=== PATIENT | male | born 1960 | race Hispanic/Latino ===

== ENCOUNTER 2016-09-30 13:05 | Emergency (ER) | payer MEDICAID ==
[2016-09-30 13:16] VITALS: TEMP 97.7
[2016-09-30 13:23] VITALS: BMI 34.2
[2016-09-30 13:44] LABS: ADD MANUAL DIFF? NO
[2016-09-30 13:55] LABS: ALB/GLOB RATIO 1.2 (1.1-1.8); ALKALINE PHOSPHATASE 79 U/L (38-133); ALT/SGPT 43 U/L (7-56); AST/SGOT 26 U/L (15-59); BILIRUBIN,TOTAL 0.7 mg/dL (0.2-1.3); BLOOD UREA NITROGEN 13 mg/dL (7-21); CARBON DIOXIDE 25 mmol/L (21-33); CHLORIDE 102 mmol/L (98-107); GFR AFRICAN-AMERICAN > 60; GLUCOSE,RANDOM 102 mg/dL (70-110); POTASSIUM 4.2 mmol/L (3.6-5.0); SODIUM 138 mmol/L (132-148); TOTAL PROTEIN 8.2 g/dL (5.8-8.3)
--- NOTE | 2016-09-30 14:00 | ED PDOC ---
Arrival/HPI - General Chief Complaint: Chest Pain Time Seen by Provider: 09/30/16 13:28 Historian: Patient, EMS - History of Present Illness Narrative History of Present Illness (Text): 09/30/16 13:45 Patient is a 56 yo male past medical hx of CABG, diabetes, smoking, medication noncompliance, presents to ED after he reported to his psychiatrist today that he has had intermittent chest discomfort as well as shortness of breath with exertion over the past week. He currently denies any pain or discomfort. States he "ran out of my medication" one month ago, states he is not sure if he is taking his aspirin or plavix or diabetic medication. He smokes 7 cigarettes a day. Time/Duration: 1 week Past Medical History - Infectious Disease Hx of Infectious Diseases: None - Tetanus Immunization Tetanus Immunization: Unknown - Past Medical History Past Medical History: No Previous - Cardiac Hx Cardiac Disorders: Yes (chest pain 01/14/13 with abn EKG) Hx Hypertension: Yes - Pulmonary Hx Respiratory Disorders: (smoker x30yrs) - Neurological Hx Neurological Disorder: Yes HX Cerebrovascular Accident: Yes - HEENT Hx HEENT Disorder: No - Renal Hx Renal Disorder: No - Endocrine/Metabolic Hx Endocrine Disorders: Yes Hx Diabetes Mellitus Type 2: Yes - Hematological/Oncological Hx Blood Disorders: No - Integumentary Hx Dermatological Disorder: No - Musculoskeletal/Rheumatological Hx Musculoskeletal Disorders: No Hx Falls: No - Gastrointestinal Hx Gastrointestinal Disorders: Yes - Genitourinary/Gynecological Hx Genitourinary Disorders: No - Psychiatric Hx Psychophysiologic Disorder: No Hx Depression: No Hx Emotional Abuse: No Hx Physical Abuse: No Hx Substance Use: No - Surgical History Hx Appendectomy: Yes Hx Open Heart Surgery: Yes - Anesthesia Hx Anesthesia: Yes Hx Anesthesia Reactions: No Hx Malignant Hyperthermia: No - Suicidal Assessment Feels Threatened In Home Enviroment: No Family/Social History Family/Social History: Unknown Family HX Smoking Status: Current Some Days Smoker Hx Alcohol Use: No Hx Substance Use: No Hx Substance Use Treatment: No Allergies/Home Meds Allergies/Adverse Reactions: Allergies cola Allergy (Uncoded 09/30/16 13:27) SWELLING Home Medications: Home Meds Medication Instructions Recorded Confirmed Aspirin [Aspirin Chewable] 81 mg PO DAILY 11/30/14 09/30/16 Atorvastatin Calcium [Lipitor] 40 mg PO DAILY 11/30/14 09/30/16 Clopidogrel [Plavix] 75 mg PO DAILY 11/30/14 09/30/16 amLODIPine [Norvasc] 5 mg PO DAILY 11/30/14 09/30/16 Metformin HCl [Glucophage] 500 mg PO BID 09/30/16 09/30/16 Metoprolol Tartrate [Lopressor] 25 mg PO BID 09/30/16 09/30/16 Review of Systems - Review of Systems Constitutional: Fatigue. absent: Fevers Eyes: absent: Vision Changes ENT: absent: Hearing Changes Respiratory: SOB. absent: Cough, Wheezing Cardiovascular: Chest Pain, SNYDER. absent: Palpitations, Edema, Calf Pain Gastrointestinal: absent: Abdominal Pain, Nausea, Vomiting Genitourinary Male: absent: Dysuria, Frequency Musculoskeletal: absent: Back Pain Skin: absent: Rash Neurological: absent: Headache, Focal Weakness Endocrine: absent: Polyuria Hemo/Lymphatic: absent: Easy Bleeding Psychiatric: absent: Depression, Suicidal Ideation Physical Exam - Physical Exam Narrative Physical Exam (Text): Head: Atraumatic. Normocephalic. Eyes: PERRL. EOMI. Visual acuity at basleine. ENT: Mucous membranes are moist and intact. Oropharynx is clear and symmetric. Neck: Supple. Full ROM. No JVD. No lymphadenopathy. Cardiovascular: Regular rate. Regular rhythm. Systolic murmur. Pulmonary/Chest: No evidence of respiratory distress. Clear to auscultation bilaterally. No wheezing, rales or rhonchi. Abdominal: Soft and non-distended. There is no tenderness. No rebound, guarding, or rigidity. No organomegaly. Good bowel sounds. Back: No CVA tenderness. Extremities: No edema. No cyanosis. No clubbing. Full range of motion in all extremities. No calf tenderness. Skin: Skin is warm and dry. No petechiae. No purpura. Smells of cigarette smoke. Neurological: Alert, awake, and oriented to person, place, time, and situation. Normal speech. Motor and sensory intact. No facial droop. No meningeal signs. Psychiatric: Good eye contact. Normal interaction, affect, and behavior. No psychosis. No suicidal or homicidal ideation. 09/30/16 17:32 Vital Signs Reviewed: Yes Vital Signs Temp Pulse Pulse Resp BP BP Pulse Ox 09/30/16 17:27 72 20 147/92 H 98 09/30/16 15:01 63 17 145/92 H 97 09/30/16 13:25 69 144/85 09/30/16 13:05 97.7 F 66 20 144/85 94 L Temperature: Afebrile Blood Pressure: Normal Pulse: Regular Respiratory Rate: Normal Appearance: Positive for: Well-Appearing, Non-Toxic Pain Distress: None Mental Status: Positive for: Alert and Oriented X 3 Medical Decision Making ED Course and Treatment: 09/30/16 17:28 Patient has significant past cardiac history. He continues to smoke. He is noncompliant with his medications. He is diabetic. He states he "has chest pain and I am short of breath all the time". With CAMILLE Mehta witness present, I discussed with patient in laymen's terms the risk of smoking, risk of not taking his medication, and limitations of a cardiology evaluation from May 2016 given his current symptoms and risk factors. Labs and EKG and imaging reviewed with patient, I HAVE RECOMMENDED ADMISSION TO THE HOSPITAL for his complaints of intermitent chest pain and sob. He states no symptoms now, although I have stated risks of SUDDEN , DISABILITY, HEART ATTACK, life threatening illness in laymen's terms. He is able to repeat back risks and he is able to repeat understanding of these risks and my stated treatment plan. Limitations of current studies again discussed with patient. He is alert and oriented. No neuro deficits. He does not wish for me to speak to any family. Dr. Do notified. Patient will sign out against medical advice. 09/30/16 17:34 Leaving Against Medical Advice (AMA): The patient is choosing to leave against medical advice. I have personally explained to the patient that choosing to do so may result in permanent bodily harm or . I have discussed at great length that without further evaluation and monitoring there may be unforeseen circumstances and/or deterioration causing permanent bodily harm or as a result of their choice. The patient is alert, oriented, and shows the mental capacity to make clear decisions regarding the patients health care at this time. The patient continues to wish to leave against medical advice. The patient has been advised that they should return to the emergency room immediately if they change their mind at any time, or if their condition begins to change or worsen in any way. - Lab Interpretations Lab Results: 09/30/16 13:40 09/30/16 13:40 Lab Results 09/30/16 15:06: Urine Color Yellow, Urine Appearance Clear, Urine pH 6.5, Ur Specific Karthaus 1.010, Urine Protein Negative, Urine Glucose (UA) Negative, Urine Ketones Negative, Urine Blood Negative, Urine Nitrate Negative, Urine Bilirubin Negative, Urine Urobilinogen 0.2, Ur Leukocyte Esterase Negative 09/30/16 13:40: WBC 7.7 D, RBC 5.28, Hgb 15.5, Hct 45.6, MCV 86.4, MCH 29.4, MCHC 34.0, RDW 13.9, Plt Count 253, MPV 10.6, Gran % 84.1 H, Lymph % (Auto) 11.2 L, Sargent % (Auto) 3.4, Eos % (Auto) 1.2 L, Baso % (Auto) 0.1, Gran # 6.46, Lymph # 0.9 L, Sargent # 0.3, Eos # 0.1, Baso # 0.01, PT 10.9, INR 1.01, APTT 28.9 , Sodium 138, Potassium 4.2, Chloride 102, Carbon Dioxide 25, Anion Gap 15, BUN 13, Creatinine 0.8, Est GFR ( Amer) > 60, Est GFR (Non-Af Amer) > 60, Random Glucose 102, Calcium 10.0, Total Bilirubin 0.7, AST 26, ALT 43, Alkaline Phosphatase 79, Lactate Dehydrogenase 363, Total Creatine Kinase 147, Troponin I < 0.01, Total Protein 8.2, Albumin 4.6, Globulin 3.7, Albumin/Globulin Ratio 1.2 - RAD Interpretation Radiology Orders: 09/30/16 13:36 CHEST PORTABLE [RAD] Stat Ecosystem Ecology Professor: Radiologist - EKG Interpretation EKG Interpretation (Text): 09/30/16 17:32 normal sinus rhythm rate of 63 Interpreted by ED Physician: Yes Type: 12 lead EKG - Medication Orders Current Medication Orders: Discontinued Medications Aspirin (Aspirin Chewable) 81 mg PO STAT STA Stop: 09/30/16 14:20 Last Admin: 09/30/16 15:02 Dose: 81 MG Disposition/Present on Arrival - Present on Arrival Any Indicators Present on Arrival: No History of DVT/PE: No History of Uncontrolled Diabetes: No Urinary Catheter: No History of Decub. Ulcer: No History Surgical Site Infection Following: None - Disposition Have Diagnosis and Disposition been Completed?: Yes Diagnosis: Chest pain Disposition: AGAINST MEDICAL ADVICE Disposition Time: 17:00 Patient Plan: Discharge Patient Problems: Current Active Problems Problem Status Diagnosed Chest pain Acute Condition: GOOD
[2016-09-30 14:01] LABS: BASO # 0.01 K/mm3 (0.0-2.0); BASO % 0.1 % (0.0-3.0); EOS # 0.1 (0.0-0.7); EOS % 1.2 % (1.5-5.0); GRAN # 6.46 (1.4-6.5); GRAN % 84.1 % (50.0-68.0); HEMATOCRIT 45.6 % (42.0-52.0); LYMPH # 0.9 (1.2-3.4); LYMPH % 11.2 % (22.0-35.0); MEAN CELL VOLUME 86.4 fL (80.0-105.0); MEAN CORPUSCULAR HEMOGLOBIN 29.4 pg (25.0-35.0); MEAN PLATELET VOLUME 10.6 fl (7.0-11.0); MONO # 0.3 (0.1-0.6); MONO % 3.4 % (1.0-6.0); PLATELET COUNT 253 10^3/uL (120.0-450.0); RED CELL DISTRIBUTION WIDTH 13.9 % (11.5-14.5); WHITE BLOOD COUNT 7.7 10^3/ul (4.5-11.0)
[2016-09-30 14:06] LABS: INR 1.01 (0.93-1.08); PARTIAL THROMBOPLASTIN TIME 28.9 Seconds (23.7-30.8)
[2016-09-30 14:07] LABS: TROPONIN I < 0.01 ng/mL
--- NOTE | 2016-09-30 14:48 | RAD ---
HISTORY: chest pain COMPARISON: 01/14/2013 FINDINGS: LUNGS: No active pulmonary disease. PLEURA: No significant pleural effusion identified, no pneumothorax apparent. CARDIOVASCULAR: Normal. OSSEOUS STRUCTURES: Sternal wires VISUALIZED UPPER ABDOMEN: Normal. OTHER FINDINGS: None. IMPRESSION: No active disease.
[2016-09-30 15:12] LABS: PH,URINE 6.5 (4.7-8.0); URINE BILIRUBIN NEGATIVE (NEGATIVE); URINE BLOOD NEGATIVE (NEGATIVE); URINE GLUCOSE (UA) NEGATIVE (NEGATIVE); URINE KETONE NEGATIVE (NEGATIVE); URINE LEUKOCYTE ESTERASE NEGATIVE Leu/uL (NEGATIVE); URINE PROTEIN NEGATIVE mg/dL (<30 mg/dL); URINE UROBILINOGEN 0.2 E.U./dL (<1 E.U./dL)
[2016-09-30 15:13] LABS: URINE APPEARANCE CLEAR (CLEAR); URINE COLOR YELLOW (YELLOW)
[2016-09-30 17:28] VITALS: BP 147/92; PULSE 72; RESP 20; O2SAT 98
--- NOTE | 2016-10-01 13:36 | CARD ---
APPROVED REPORT EKG Measurement Heart [id number] [id number] <Conclusion> Sinus rhythm with premature ventricular complexes or fusion complexes Otherwise normal ECG
== END 2016-09-30 17:30 | disposition left against medical advice (07) ==
LOC: ED 13:05 → ERH 15:48 → UNDOADMOB 15:48 → ERH 19:30
DX: R07.9 Chest pain, unspecified (principal); I10 Essential (primary) hypertension; E11.9 Type 2 diabetes mellitus without complications; Z95.1 Presence of aortocoronary bypass graft; Z91.19 Patient's noncompliance with other medical treatment and regimen; Z72.0 Tobacco use

== ENCOUNTER 2017-01-03 05:07 | Emergency (ER) | payer MEDICAID ==
[2017-01-03 05:07] VITALS: BMI 34.2
--- NOTE | 2017-01-03 05:24 | ED PDOC ---
Arrival/HPI - General Chief Complaint: Chest Pain Time Seen by Provider: 01/03/17 05:13 Historian: Patient - History of Present Illness Narrative History of Present Illness (Text): 01/03/17 05:18 Lee Baum is a 56 year old male smoker, whose past medical history includes hypertension, CABG, and diabetes, who presents to the Emergency department under police custody for chest pain tonight. Patient states he has been experiencing left-sided chest pain, worsened with deep inspiration. Patient notes pain when palpating over the area and reports he may have possibly broken a rib. Patient denies any nausea, vomiting, diarrhea, urinary symptoms, back pain, neck pain, headache, dizziness, or any other complaints. Symptom Onset: Gradual Symptom Course: Unchanged Activities at Onset: Rest, Light Context: Home Past Medical History - Provider Review Nursing Documentation Reviewed: Yes - Infectious Disease Hx of Infectious Diseases: None - Tetanus Immunization Tetanus Immunization: Unknown - Past Medical History Past Medical History: No Previous - Cardiac Hx Cardiac Disorders: Yes (chest pain 01/14/13 with abn EKG) Hx Hypertension: Yes - Pulmonary Hx Respiratory Disorders: Yes (smoker x30yrs) - Neurological Hx Neurological Disorder: Yes HX Cerebrovascular Accident: Yes - HEENT Hx HEENT Disorder: No - Renal Hx Renal Disorder: No - Endocrine/Metabolic Hx Endocrine Disorders: Yes Hx Diabetes Mellitus Type 2: Yes - Hematological/Oncological Hx Blood Disorders: No - Integumentary Hx Dermatological Disorder: No - Musculoskeletal/Rheumatological Hx Musculoskeletal Disorders: No Hx Falls: No - Gastrointestinal Hx Gastrointestinal Disorders: Yes - Genitourinary/Gynecological Hx Genitourinary Disorders: No - Psychiatric Hx Psychophysiologic Disorder: No Hx Depression: No Hx Emotional Abuse: No Hx Physical Abuse: No Hx Substance Use: No - Surgical History Hx Appendectomy: Yes Hx Open Heart Surgery: Yes - Anesthesia Hx Anesthesia: Yes Hx Anesthesia Reactions: No Hx Malignant Hyperthermia: No - Suicidal Assessment Feels Threatened In Home Enviroment: No Family/Social History - Physician Review Nursing Documentation Reviewed: Yes Family/Social History: Unknown Family HX Smoking Status: Heavy Smoker > 10 Cigarettes Daily Hx Alcohol Use: Yes Frequency of alcohol use: Daily Hx Substance Use: No Hx Substance Use Treatment: No Allergies/Home Meds Allergies/Adverse Reactions: Allergies cola Allergy (Uncoded 09/30/16 13:27) SWELLING Home Medications: Home Meds Medication Instructions Recorded Confirmed Aspirin [Aspirin Chewable] 81 mg PO DAILY 11/30/14 01/03/17 Atorvastatin Calcium [Lipitor] 40 mg PO DAILY 11/30/14 01/03/17 Clopidogrel [Plavix] 75 mg PO DAILY 11/30/14 01/03/17 amLODIPine [Norvasc] 5 mg PO DAILY 11/30/14 01/03/17 Metformin HCl [Glucophage] 500 mg PO BID 09/30/16 01/03/17 Metoprolol Tartrate [Lopressor] 25 mg PO BID 09/30/16 01/03/17 Review of Systems - Physician Review All systems were reviewed & negative as marked: Yes - Review of Systems Constitutional: Normal. absent: Fevers Eyes: Normal ENT: Normal Respiratory: Normal. absent: SOB Cardiovascular: Chest Pain Gastrointestinal: Normal Genitourinary Male: Normal. absent: Dysuria, Frequency, Hematuria, Urinary Output Changes Musculoskeletal: Normal. absent: Back Pain, Neck Pain Skin: Normal Neurological: Normal. absent: Headache, Dizziness Endocrine: Normal Hemo/Lymphatic: Normal Psychiatric: Normal Physical Exam Vital Signs Reviewed: Yes Vital Signs Temp Pulse Pulse Resp BP Pulse Ox 01/03/17 05:29 86 01/03/17 05:24 97.7 F 80 18 145/88 96 Temperature: Afebrile Blood Pressure: Normal Pulse: Regular Respiratory Rate: Normal Appearance: Positive for: Well-Appearing, Non-Toxic, Comfortable Pain Distress: None Mental Status: Positive for: Alert and Oriented X 3 - Systems Exam Head: Present: Atraumatic, Normocephalic Pupils: Present: PERRL Extroacular Muscles: Present: EOMI Conjunctiva: Present: Normal Mouth: Present: Moist Mucous Membranes Neck: Present: Normal Range of Motion Respiratory/Chest: Present: Clear to Auscultation, Good Air Exchange, Tender to Palpation (Tenderness over left ribs). No: Respiratory Distress, Accessory Muscle Use Cardiovascular: Present: Regular Rate and Rhythm, Normal S1, S2. No: Murmurs Abdomen: Present: Normal Bowel Sounds. No: Tenderness, Distention, Peritoneal Signs Back: Present: Normal Inspection Upper Extremity: Present: Normal Inspection. No: Cyanosis, Edema Lower Extremity: Present: Normal Inspection. No: Edema Neurological: Present: GCS=15, CN II-XII Intact, Speech Normal Skin: Present: Warm, Dry, Normal Color. No: Rashes Psychiatric: Present: Alert, Oriented x 3, Normal Insight, Normal Concentration Medical Decision Making ED Course and Treatment: 01/03/17 05:18 Impression: 56 year old male complaining of left-sided chest pain, worse with deep inspiration. Differential Diagnosis included but are not limited to: fracture vs. musculoskeletal pain vs. costochondritis Plan: -- EKG -- CXR -- Reassess and disposition Prior Visits: Notes and results from previous visits were reviewed. On 09/30/2016, pt was seen in the Emergency department for chest pain and shortness of breath. Pt left against medical advice. Progress Notes: Reviewed EKG, NSR at [address]-segment elevations or depressions, no T-wave inversions, normal intervals. 01/03/17 05:43 Reviewed radiology, Chest X-ray shows no acute processes, no fracture. 01/03/17 06:04 Reevaluation: On reevaluation the patient feels better and is in no acute distress. Patient is stable for discharge. Pt medically cleared for incarceration. Re-evaluation Time: 06:04 Reassessment Condition: Re-examined, Improved - Lab Interpretations I have reviewed the lab results: Yes - RAD Interpretation Radiology Orders: 01/03/17 05:22 CHEST TWO VIEWS (PA/LAT) [RAD] Stat Top Lift Scourer: ED Physician - Scribe Statement The provider has reviewed the documentation as recorded by the Destinee Matthews Provider Scribe Attestation: All medical record entries made by the Scribe were at my direction and personally dictated by me. I have reviewed the chart and agree that the record accurately reflects my personal performance of the history, physical exam, medical decision making, and the department course for this patient. I have also personally directed, reviewed, and agree with the discharge instructions and disposition. Disposition/Present on Arrival - Present on Arrival Any Indicators Present on Arrival: No History of DVT/PE: No History of Uncontrolled Diabetes: No Urinary Catheter: No History of Decub. Ulcer: No History Surgical Site Infection Following: None - Disposition Have Diagnosis and Disposition been Completed?: Yes Diagnosis: Muscular chest pain Disposition: HOME/ ROUTINE Disposition Time: 06:12 Patient Problems: Current Active Problems Problem Status Onset Muscular chest pain Acute Discharge Instructions (ExitCare): Chest Pain (ED) Additional Instructions: medically stable for incarceration
[2017-01-03 05:25] VITALS: BP 145/88; RESP 18; TEMP 97.7; O2SAT 96
[2017-01-03 05:33] VITALS: PULSE 86
--- NOTE | 2017-01-03 09:17 | RAD ---
HISTORY: fall COMPARISON: 09/30/2016 TECHNIQUE: Chest PA and lateral FINDINGS: LUNGS: No active pulmonary disease. PLEURA: No significant pleural effusion identified. No pneumothorax apparent. CARDIOVASCULAR: Normal. OSSEOUS STRUCTURES: Sternal wires VISUALIZED UPPER ABDOMEN: Normal. OTHER FINDINGS: None. IMPRESSION: No active disease.
--- NOTE | 2017-01-03 21:13 | CARD ---
APPROVED REPORT EKG Measurement Heart [id number] [id number] <Conclusion> Normal sinus rhythm Normal ECG
== END 2017-01-03 06:16 ==
LOC: ED 05:07
DX: R07.89 Other chest pain (principal); F17.210 Nicotine dependence, cigarettes, uncomplicated

== ENCOUNTER 2017-04-04 21:28 | Emergency (ER) | payer MEDICAID ==
[2017-04-04 21:28] VITALS: BMI 34.2
--- NOTE | 2017-04-04 22:07 | ED PDOC ---
Arrival/HPI - General Time Seen by Provider: 04/04/17 21:48 Historian: Patient, Police - History of Present Illness Narrative History of Present Illness (Text): 04/04/17 22:06 Lee Baum is a 57 year old male smoker, whose past medical history includes alcohol abuse, hypertension, CABG, and diabetes, who presents to the Emergency department brought in by Arsh LANGE for public intoxication tonight. Patient was seen wandering outside intoxicated. As per police, patient was making possible suggestions of suicidal ideation/not wanting to live anymore. Patient currently states he does not want to hurt himself, states he does not want to be in the hospital. When present with police, patient appears tearful. Patient denies any homicidal ideation, fever, chills, chest pain, shortness of breath, nausea, vomiting, diarrhea, urinary symptoms, back pain, headache, dizziness, or any other complaints. Time/Duration: Other (tonight) Symptom Onset: Gradual Symptom Course: Unchanged Activities at Onset: Light Context: Home Past Medical History - Provider Review Nursing Documentation Reviewed: Yes - Infectious Disease Hx of Infectious Diseases: None - Tetanus Immunization Tetanus Immunization: Unknown - Past Medical History Past Medical History: No Previous - Cardiac Hx Cardiac Disorders: Yes (chest pain 01/14/13 with abn EKG) Hx Hypertension: Yes - Pulmonary Hx Respiratory Disorders: Yes (smoker x30yrs) - Neurological Hx Neurological Disorder: Yes HX Cerebrovascular Accident: Yes - HEENT Hx HEENT Disorder: No - Renal Hx Renal Disorder: No - Endocrine/Metabolic Hx Endocrine Disorders: Yes Hx Diabetes Mellitus Type 2: Yes - Hematological/Oncological Hx Blood Disorders: No - Integumentary Hx Dermatological Disorder: No - Musculoskeletal/Rheumatological Hx Musculoskeletal Disorders: No Hx Falls: No - Gastrointestinal Hx Gastrointestinal Disorders: Yes - Genitourinary/Gynecological Hx Genitourinary Disorders: No - Psychiatric Hx Psychophysiologic Disorder: No Hx Depression: No Hx Emotional Abuse: No Hx Physical Abuse: No Hx Substance Use: No - Surgical History Hx Appendectomy: Yes Hx Open Heart Surgery: Yes - Anesthesia Hx Anesthesia: Yes Hx Anesthesia Reactions: No Hx Malignant Hyperthermia: No - Suicidal Assessment Feels Threatened In Home Enviroment: No Family/Social History - Physician Review Nursing Documentation Reviewed: Yes Family/Social History: Unknown Family HX Smoking Status: Heavy Smoker > 10 Cigarettes Daily Hx Alcohol Use: Yes Hx Substance Use: No Hx Substance Use Treatment: No Allergies/Home Meds Allergies/Adverse Reactions: Allergies cola Allergy (Uncoded 04/05/17 00:35) SWELLING Home Medications: Home Meds Medication Instructions Recorded Confirmed Aspirin [Aspirin Chewable] 81 mg PO DAILY 11/30/14 04/05/17 Atorvastatin Calcium [Lipitor] 40 mg PO DAILY 11/30/14 04/05/17 Clopidogrel [Plavix] 75 mg PO DAILY 11/30/14 04/05/17 amLODIPine [Norvasc] 5 mg PO DAILY 11/30/14 04/05/17 Metformin HCl [Glucophage] 500 mg PO BID 09/30/16 04/05/17 Metoprolol Tartrate [Lopressor] 25 mg PO BID 09/30/16 04/05/17 Ibuprofen [Motrin Tab] 800 mg PO Q8 04/05/17 04/05/17 Multivitamin [Daily Leonor] 1 tab PO DAILY 04/05/17 04/05/17 Omeprazole 40 mg PO DAILY 04/05/17 04/05/17 Vitamin B Complex [Nature's Blend 1 tab PO DAILY 04/05/17 04/05/17 Balance B-100] Review of Systems - Physician Review All systems were reviewed & negative as marked: Yes - Review of Systems Constitutional: Normal. absent: Fevers Eyes: Normal ENT: Normal Respiratory: Normal. absent: SOB, Cough Cardiovascular: Normal. absent: Chest Pain Gastrointestinal: Normal. absent: Abdominal Pain, Diarrhea, Nausea, Vomiting Genitourinary Male: Normal. absent: Dysuria, Frequency, Hematuria, Urinary Output Changes Musculoskeletal: Normal. absent: Back Pain, Neck Pain Skin: Normal. absent: Rash Neurological: Normal. absent: Headache, Dizziness Endocrine: Normal Hemo/Lymphatic: Normal Psychiatric: Other (+alcohol intoxication) Physical Exam Vital Signs Reviewed: Yes Vital Signs Temp Pulse Resp BP Pulse Ox 04/04/17 23:51 80 17 126/67 94 L 04/04/17 22:14 98.5 F 88 18 126/85 100 Temperature: Afebrile Blood Pressure: Normal Pulse: Regular Respiratory Rate: Normal Appearance: Positive for: Well-Appearing Pain Distress: None Mental Status: Positive for: Alert and Oriented X 3 - Systems Exam Head: Present: Atraumatic, Normocephalic Pupils: Present: PERRL Extroacular Muscles: Present: EOMI Conjunctiva: Present: Normal Mouth: Present: Moist Mucous Membranes Neck: Present: Normal Range of Motion Respiratory/Chest: Present: Clear to Auscultation, Good Air Exchange. No: Respiratory Distress, Accessory Muscle Use Cardiovascular: Present: Regular Rate and Rhythm, Normal S1, S2. No: Murmurs Abdomen: Present: Normal Bowel Sounds. No: Tenderness, Distention, Peritoneal Signs Back: Present: Normal Inspection Upper Extremity: Present: Normal Inspection. No: Cyanosis, Edema Lower Extremity: Present: Normal Inspection. No: Edema Neurological: Present: GCS=15, CN II-XII Intact, Speech Normal Skin: Present: Warm, Dry, Normal Color. No: Rashes Psychiatric: Present: Alert, Oriented x 3, Intoxicated, Other (Tearful) Medical Decision Making ED Course and Treatment: 04/04/17 22:06 Impression: 57 year old male brought in for alcohol intoxication, possible suicidal ideation. Plan: -- EKG -- Labs, alcohol level -- Urinalysis, urine drug screen -- Reassess and disposition Prior Visits: Notes and results from previous visits were reviewed. On 01/03/2017, pt was seen in the Emergency department for left-sided chest pain. Pt was discharged home. Progress Notes: 04/04/17 22:20 Code Hartmann called, pt agitated, combative with staff, requiring sedation and 4 pt restraints. 04/05/17 00:02 Reviewed EKG, NSR at [address]-segment elevations or depressions, no T-wave inversions, normal intervals. - Lab Interpretations Lab Results: 04/04/17 23:50 04/04/17 23:50 Lab Results 04/05/17 05:19: POC Glucose (mg/dL) 113 H 04/04/17 23:50: WBC 6.7, RBC 4.68, Hgb 13.4 L, Hct 41.0 L, MCV 87.6, MCH 28.6, MCHC 32.7, RDW 13.8, Plt Count 215, MPV 10.0 04/04/17 23:50: Alcohol, Quantitative 196 H 04/04/17 23:50: Sodium 143, Potassium 3.7, Chloride 105, Carbon Dioxide 19 L, Anion Gap 23 H, BUN 14, Creatinine 0.9, Est GFR ( Amer) > 60, Est GFR ( Non-Af Amer) > 60, Random Glucose 125 H, Calcium 9.1, Total Bilirubin 0.3, AST 38, ALT 48, Alkaline Phosphatase 60, Total Protein 7.2, Albumin 4.6, Globulin 2.6, Albumin/Globulin Ratio 1.8 04/04/17 23:49: POC Glucose (mg/dL) 123 H - Medication Orders Current Medication Orders: Discontinued Medications Haloperidol Lactate (Haldol) 5 mg IM STAT STA PRN Reason: Protocol Stop: 04/04/17 23:15 Last Admin: 04/04/17 23:34 Dose: 5 mg IM Administration Charges Document 04/04/17 23:34 ND (Rec: 04/04/17 23:[address] [id number]) Injection Site MAR Injection Site Right Vastus Lateralis Charges for Administration # of IM Administrations 1 Lorazepam (Ativan) 2 mg IM ONCE ONE Stop: 04/04/17 23:15 Last Admin: 04/04/17 23:34 Dose: 2 mg IM Administration Charges Document 04/04/17 23:34 ND (Rec: 04/04/17 23:34 ND [facility] [place]-[id number]) Injection Site MAR Injection Site Right Vastus Lateralis Charges for Administration # of IM Administrations 1 Ziprasidone (Geodon Inj) 20 mg IM ONCE STA Stop: 04/04/17 22:30 Last Admin: 04/04/17 22:36 Dose: IM Administration Charges Document 04/04/17 22:36 OCS (Rec: 04/04/17 22:36 OCS [id number]) Injection Site MAR Injection Site Left Deltoid Charges for Administration # of IM Administrations 1 - Transfer of Care Patient signed out to Dr:: Julissa Other: PES evaluation/reassess/final disposition - Scribe Statement The provider has reviewed the documentation as recorded by the Scribfahad Matthews Provider Scribe Attestation: All medical record entries made by the Scribe were at my direction and personally dictated by me. I have reviewed the chart and agree that the record accurately reflects my personal performance of the history, physical exam, medical decision making, and the department course for this patient. I have also personally directed, reviewed, and agree with the discharge instructions and disposition. Disposition/Present on Arrival - Present on Arrival Any Indicators Present on Arrival: No History of DVT/PE: No History of Uncontrolled Diabetes: No Urinary Catheter: No History Surgical Site Infection Following: None - Disposition Have Diagnosis and Disposition been Completed?: No Diagnosis: Alcohol intoxication, Suicidal ideation Disposition Time: 07:00 Patient Problems: Current Active Problems Problem Status Onset Alcohol intoxication Acute Suicidal ideation Acute Condition: STABLE Referrals: Christiano Do MD [Primary Care Provider] - Follow up with primary
[2017-04-05 00:12] LABS: MEAN CELL VOLUME 87.6 fl (80.0-105.0); MEAN CORPUSCULAR HEMOGLOBIN 28.6 pg (25.0-35.0); MEAN CORPUSCULAR HGB CONC 32.7 g/dl (31.0-37.0); RED CELL DISTRIBUTION WIDTH 13.8 % (11.5-14.5); WHITE BLOOD COUNT 6.7 10^3/ul (4.5-11.0)
[2017-04-05 00:43] LABS: ALB/GLOB RATIO 1.8 (1.1-1.8); ALKALINE PHOSPHATASE 60 U/L (38-126); ALT/SGPT 48 U/L (7-56); AST/SGOT 38 U/L (17-59); BILIRUBIN,TOTAL 0.3 mg/dL (0.2-1.3); BLOOD UREA NITROGEN 14 mg/dL (7-21); CALCIUM 9.1 mg/dL (8.4-10.5); CARBON DIOXIDE 19 mmol/L (21-33); CHLORIDE 105 mmol/L (98-107); GFR AFRICAN-AMERICAN > 60; GLUCOSE,RANDOM 125 mg/dL (70-110); POTASSIUM 3.7 mmol/L (3.6-5.0); SODIUM 143 mmol/L (132-148); TOTAL PROTEIN 7.2 g/dL (5.8-8.3)
[2017-04-05 08:46] VITALS: BP 122/70; PULSE 90; RESP 16; TEMP 98; O2SAT 97
--- NOTE | 2017-04-05 10:17 | CARD ---
APPROVED REPORT EKG Measurement Heart [id number] <Conclusion> Normal sinus rhythm Small inferior q waves Normal ECG No change
--- NOTE | 2017-04-08 15:27 | ED PDOC ---
Physical Exam Vital Signs Reviewed: Yes Vital Signs Temp Pulse Resp BP Pulse Ox 04/05/17 08:00 98 F 90 16 122/70 97 04/04/17 23:51 80 17 126/67 94 L 04/04/17 22:14 98.5 F 88 18 126/85 100 Temperature: Afebrile Blood Pressure: Normal Pulse: Regular Respiratory Rate: Normal Appearance: Positive for: Well-Appearing, Non-Toxic, Comfortable Pain Distress: None Mental Status: Positive for: Alert and Oriented X 3 Finger Stick Blood Glucose: 123 Medical Decision Making ED Course and Treatment: 04/04/17 7:00 Case signed out to me, pending PES evaluation, reevaluation and final disposition. Patient was medically cleared by PES. - Lab Interpretations Lab Results: 04/04/17 23:50 04/04/17 23:50 Lab Results 04/05/17 05:19: POC Glucose (mg/dL) 113 H 04/04/17 23:50: WBC 6.7, RBC 4.68, Hgb 13.4 L, Hct 41.0 L, MCV 87.6, MCH 28.6, MCHC 32.7, RDW 13.8, Plt Count 215, MPV 10.0 04/04/17 23:50: Alcohol, Quantitative 196 H 04/04/17 23:50: Sodium 143, Potassium 3.7, Chloride 105, Carbon Dioxide 19 L, Anion Gap 23 H, BUN 14, Creatinine 0.9, Est GFR ( Amer) > 60, Est GFR ( Non-Af Amer) > 60, Random Glucose 125 H, Calcium 9.1, Total Bilirubin 0.3, AST 38, ALT 48, Alkaline Phosphatase 60, Total Protein 7.2, Albumin 4.6, Globulin 2.6, Albumin/Globulin Ratio 1.8 04/04/17 23:49: POC Glucose (mg/dL) 123 H I have reviewed the lab results: Yes - Medication Orders Current Medication Orders: Discontinued Medications Haloperidol Lactate (Haldol) 5 mg IM STAT STA PRN Reason: Protocol Stop: 04/04/17 23:15 Last Admin: 04/04/17 23:34 Dose: 5 mg IM Administration Charges Document 04/04/17 23:34 ND (Rec: 04/04/17 23:35 ND [facility] [place]-[id number]) Injection Site MAR Injection Site Right Vastus Lateralis Charges for Administration # of IM Administrations 1 Lorazepam (Ativan) 2 mg IM ONCE ONE Stop: 04/04/17 23:15 Last Admin: 04/04/17 23:34 Dose: 2 mg IM Administration Charges Document 04/04/17 23:34 ND (Rec: 04/04/17 23:34 ND [facility] [place]-[id number]) Injection Site MAR Injection Site Right Vastus Lateralis Charges for Administration # of IM Administrations 1 Ziprasidone (Geodon Inj) 20 mg IM ONCE STA Stop: 04/04/17 22:30 Last Admin: 04/04/17 22:36 Dose: IM Administration Charges Document 04/04/17 22:36 OCS (Rec: 04/04/17 22:36 OCS [id number]) Injection Site MAR Injection Site Left Deltoid Charges for Administration # of IM Administrations 1 - Scribe Statement The provider has reviewed the documentation as recorded by the Laceyibe Bell Liao Provider Scribe Attestation: All medical record entries made by the Scribe were at my direction and personally dictated by me. I have reviewed the chart and agree that the record accurately reflects my personal performance of the history, physical exam, medical decision making, and the department course for this patient. I have also personally directed, reviewed, and agree with the discharge instructions and disposition. Disposition/Present on Arrival - Present on Arrival Any Indicators Present on Arrival: No History of DVT/PE: No History of Uncontrolled Diabetes: No Urinary Catheter: No History of Decub. Ulcer: No History Surgical Site Infection Following: None - Disposition Have Diagnosis and Disposition been Completed?: Yes Diagnosis: Alcohol intoxication, Suicidal ideation Disposition: HOME/ ROUTINE Disposition Time: 08:00 Condition: STABLE Discharge Instructions (ExitCare): Depression (DC), Alcohol Intoxication (ED), Suicide Prevention for Adults (DC) Additional Instructions: please follow instructions as directed by pes worker. return to emergency room withworsening symptoms or concerns. Referrals: Christiano Do MD [Primary Care Provider] - Follow up with primary Forms: [employer] (Kyrgyz)
== END 2017-04-05 08:47 | disposition home or self-care (01) ==
LOC: ED 21:28
DX: F10.129 Alcohol abuse with intoxication, unspecified (principal); R45.851 Suicidal ideations; E11.9 Type 2 diabetes mellitus without complications; I10 Essential (primary) hypertension; F17.210 Nicotine dependence, cigarettes, uncomplicated
CPT/HCPCS: 80053; 80320; 82948; 85027; 90791; 93005; 96372; 99284; J1630; J2060; J3486